=== PATIENT | male | born 1970 | race Two or more races ===

== ENCOUNTER → 2018-12-09 | Emergency (ER) | payer OTHER ==
[~2018-12-09] VITALS: Ht 170.2 cm; Wt 77.1 kg
[~2018-12-09] MED LIST: CLONAZEPAM0.5 MG; FLEXERIL; KETO10TA2 PO; MEDROLPACK PO; NAPROXEN250 MG; NEURONTIN600 MG; NORFLEX100MG; ORPH100T PO; TRAMADOL HCL50 MG; ZOLOFT50 MG
== END | disposition home or self-care (01) ==
LOC: ER 20:58
DX: N20.1 Calculus of ureter (principal)

== ENCOUNTER 2019-02-03 22:39 | Emergency (ER) | payer OTHER ==
[~2019-02-03] VITALS: Ht 170.2 cm; Wt 77.1 kg
[2019-02-03] MEDS ORDERED: WELLBUTRIN XL300 MG (22:43)
[2019-02-03] MEDS ORDERED: ATIVAN0.5 M1 (22:43)
[2019-02-03] MEDS ORDERED: QUETIAPINE FUM200 MG (22:44)
[2019-02-03] MEDS ORDERED: DIVALPROEX SOD500 MG (22:44)
== END 2019-02-04 01:13 | disposition home or self-care (01) ==
LOC: ER 22:39
DX: N20.1 Calculus of ureter (principal); R10.32 Left lower quadrant pain

== ENCOUNTER 2020-06-02 07:45 | Inpatient (IN) | payer OTHER ==
[~2020-06-02] VITALS: Ht 373.4 cm; Wt 81.6 kg
[~2020-06-02 07:45] MED LIST changes: +ATIVAN0.5 M1; +DIVALPROEX SOD500 MG; +QUETIAPINE FUM200 MG; +WELLBUTRIN XL300 MG
[2020-06-02] MEDS ORDERED: ZOLOFT100 MG PO (09:08)
[2020-06-02] MEDS ORDERED: ZOLOFT50 MG PO (09:09)
[2020-06-02] MEDS ORDERED: ATIVAN0.5 M1 PO (09:09)
[2020-06-02] MEDS ORDERED: RESTORIL30 M1 PO (09:10)
[2020-06-02] MEDS ORDERED: BACLOFEN10 MG PO (09:10)
[2020-06-02] MEDS ORDERED: [UNRECOGNIZED DRUG - OTHER] PO (09:10)
[2020-06-02] MEDS ORDERED: SULINDAC200 MG PO (09:11)
[2020-06-11] MEDS ORDERED: OXYC1TAB9 PO (06:25)
== END 2020-06-11 15:26 | disposition home or self-care (01) | DRG 454 ==
LOC: SURH 06-09 06:41 → O/R 06-09 06:41 → RECOVERY 06-09 07:45 → SURH 06-09 17:22
PROVIDERS: ADMIT Neurological Surgery; ATTEND Neurological Surgery
PROC: 0SG1071 Fusion of 2 or more Lumbar Vertebral Joints with Autologous Tissue Substitute, Posterior Approach, Posterior Column, Open Approach (ICD-10-PCS; 2020-06-09)
PROC: 0ST20ZZ Resection of Lumbar Vertebral Disc, Open Approach (ICD-10-PCS; 2020-06-09)
PROC: 3E0U0GB Introduction of Recombinant Bone Morphogenetic Protein into Joints, Open Approach (ICD-10-PCS; 2020-06-09)
PROC: 0SG10AJ Fusion of 2 or more Lumbar Vertebral Joints with Interbody Fusion Device, Posterior Approach, Anterior Column, Open Approach (ICD-10-PCS; principal; 2020-06-09 09:45)
DX: M48.062 Spinal stenosis, lumbar region with neurogenic claudication (principal); N20.1 Calculus of ureter; Z20.828 Contact with and (suspected) exposure to other viral communicable diseases

== ENCOUNTER → 2022-08-29 | Emergency (ER) | payer OTHER ==
[~2022-08-29] VITALS: Ht 170.2 cm; Wt 81.6 kg
[~2022-08-29] MED LIST changes: +ATIVAN0.5 M1 PO; +BACLOFEN10 MG PO; +OXYC1TAB9 PO; +RESTORIL30 M1 PO; +SULINDAC200 MG PO; +TAMS0.4C PO; +ZOLOFT100 MG PO; +ZOLOFT50 MG PO; +[UNRECOGNIZED DRUG - OTHER] PO
== END | disposition home or self-care (01) ==
LOC: ER 12:45
DX: R10.31 Right lower quadrant pain (principal)